=== PATIENT | male | born 1980 | race Caucasian/White ===

== ENCOUNTER 2023-05-26 18:07 | Emergency (ER) | payer BC ==
[~2023-05-26] VITALS: Ht 188 cm; Wt 95.3 kg
[2023-05-26] MEDS ORDERED: KETOROLAC TROMETHAMINE 60 MG/2 ML VIAL IM STA (18:25)
[2023-05-26] MEDS ORDERED: DEXAMETHASONE 10MG/ML PF INJ IM STA (18:25)
[2023-05-26] MEDS ORDERED: DEXAMETHASONE SOD PHOS 10 MG/1 ML VIAL ONE (18:33)
[2023-05-26] MEDS ORDERED: AZITHROMYCIN250 MG PO ×2 (19:19→19:25)
[2023-05-26] MEDS ORDERED: VENTOLIN HFA18 GM INH ×2 (19:19→19:25)
[2023-05-26] MEDS ORDERED: PREDNISONE20 MG PO ×2 (19:19→19:26)
[2023-05-26 19:25] VITALS: O2SAT 99
== END 2023-05-26 19:26 | disposition home or self-care (01) ==
LOC: ER 18:16
DX: R05.9 Cough, unspecified (principal); U07.1 COVID-19; R53.81 Other malaise
CPT/HCPCS: 83518; 87070; 99283; J1100; J1885; U0002